=== PATIENT | male | born 1995 | race Caucasian/White ===

== ENCOUNTER 2017-01-21 02:47 | Inpatient (IN) | payer OTHER ==
[2017-01-21] VITALS (11 sets, daily range): BP systolic 93–125; BP diastolic 55–80
[~2017-01-21] VITALS: Ht 180.3 cm; Wt 65.4 kg
[~2017-01-21 02:47] MED LIST: CENTRUM COMPLE1 EACH PO; HUMULIN R100 UNITS/ SC; INSULIN REGULAR SQ; KEFLEX500 MG PO; LANTUS 10100 UNITS/ SC; LANTUS 3 M100 UNITS1 SC; LANTUS100 UNIT/1 SQ; MOTRIN IB200 MG PO; NOVOLIN,HU100 UNITS1 SC; NOVOLOG 10100 UNITS/ SC
[2017-01-21 03:16] LABS: HEMATOCRIT 42.5 % (38.0-50.0); MCH 30.8 PG (29.0-34.0); MCHC 35.1 G/DL (30.0-36.0); MCV 87.8 FL (86-99); MEAN PLAT.VOLUME 10.5 uM^3 (9.0-12.4); PLATELET COUNT 276 K/uL (156-360); RBC DIS.WIDTH-CV 11.4 % (11.8-14.6); RED BLOOD COUNT 4.84 M/uL (4.00-5.50); WHITE BLOOD COUNT 6.5 K/uL (4.1-10.2)
[2017-01-21 03:18] LABS: CARBON DIOXIDE (BICARBONATE) 23.6 MEQ/L (20-31)
[2017-01-21 03:26] LABS: CHLORIDE 92 mEq/L (99-109); POTASSIUM 3.3 mEq/L (3.7-5.4); SODIUM 134 mEq/L (136-147)
[2017-01-21 03:30] LABS: ANION GAP 23 MEQ/L (2-14)
[2017-01-21 03:31] LABS: SERUM ETHYL ALCOHOL 141 mg/dL
[2017-01-21 03:32] LABS: ALKALINE PHOSPHATASE 96 IU/L (3-129); GFR ESTIMATE (CALCULATED) > 59 mL/min/
[2017-01-21 03:33] LABS: UREA NITROGEN (BUN) 12 mg/dL (9-23)
[2017-01-21 03:47] LABS: GLUCOSE 657 mg/dL (70-99)
[2017-01-21 04:02] LABS: ADD MIUA? NO; BILIRUBIN NEGATIVE; BLOOD NEGATIVE; COLOR COLORLESS ((YELLOW)); GLUCOSE (STRIP) >=500; KETONES 5; LEUKOCYTES NEGATIVE; NITRITE NEGATIVE; PROTEIN (STRIP) NEGATIVE; SPECIFIC GRAVITY 1.021 (1.000-1.030); UCUL ADDED? NO; UROBILINOGEN 0.2 MG/DL (0.2-1.0)
[2017-01-21 04:07] LABS: AMPHETAMINE NEGATIVE (500 ng/mL); BARBITURATES NEGATIVE (200 ng/mL); BENZODIAZEPINES NEGATIVE (150 ng/mL); COCAINE NEGATIVE (150 ng/mL); INTERNAL CONTROLS VALID? YES; METHADONE NEGATIVE (200 ng/mL); METHAMPHETAMINE NEGATIVE (500 ng/mL); OPIATES (MORPHINE) NEGATIVE (100 ng/mL); OXYCODONE NEGATIVE (100 ng/mL); PHENCYCLIDINE NEGATIVE (25 ng/mL); PROPOXYPHENE NEGATIVE (300 ng/mL); THC CANNABINOIDS NEGATIVE (50 ng/mL); TRICYCLIC ANTIDEPRESSANTS NEGATIVE (300 ng/mL)
[2017-01-21 06:02] LABS: POINT-OF-CARE METER ID UU14100415
[2017-01-21] MEDS ORDERED: LANTUS 10100 UNITS/ SQ (06:14)
[2017-01-21] MEDS ORDERED: MELOXICAM15 MG PO (06:17)
[2017-01-21 07:32] LABS: METH RESISTANT S AUREUS PCR NEGATIVE (NEGATIVE)
[2017-01-21 07:37] LABS: PROBE CHECK PASS; SPECIMEN PROCESSING CONTROL PASS
[2017-01-21 07:47] LABS: Estimated Average Glucose 303 mg/dL (70-123); HEMOGLOBIN A1c (GLYCOHEMOGLOB) 12.2 % HGB (Below 5.7)
[2017-01-21 08:34] LABS: ANION GAP 10 MEQ/L (2-14); CHLORIDE 104 MEQ/L (99-109); POTASSIUM 3.7 MEQ/L (3.7-5.4); SAMPLE HEMOLYSIS CHECK 0; SAMPLE ICTERIC CHECK 0; SAMPLE LIPEMIA CHECK 0; UREA NITROGEN (BUN) 9 mg/dL (9-23)
[2017-01-21 08:36] LABS: GFR ESTIMATE (CALCULATED) > 59 mL/min/; GLUCOSE 235 mg/dL (70-99); SODIUM 141 MEQ/L (136-147)
[2017-01-21 09:01] LABS: POINT-OF-CARE METER ID UU14162636
[2017-01-21 12:22] LABS: ANION GAP 6 MEQ/L (2-14); CHLORIDE 106 MEQ/L (99-109); GFR ESTIMATE (CALCULATED) > 59 mL/min/; POTASSIUM 3.3 MEQ/L (3.7-5.4); SAMPLE HEMOLYSIS CHECK 0; SAMPLE ICTERIC CHECK 0; SAMPLE LIPEMIA CHECK 0; SODIUM 142 MEQ/L (136-147); UREA NITROGEN (BUN) 8 mg/dL (9-23)
[2017-01-21 12:23] LABS: GLUCOSE 119 mg/dL (70-99)
[2017-01-21 17:10] LABS: ANION GAP 7 MEQ/L (2-14); CHLORIDE 106 MEQ/L (99-109); POTASSIUM 3.7 MEQ/L (3.7-5.4); SAMPLE HEMOLYSIS CHECK 0; SAMPLE ICTERIC CHECK 0; SAMPLE LIPEMIA CHECK 0; SODIUM 139 MEQ/L (136-147)
[2017-01-21 17:16] LABS: GFR ESTIMATE (CALCULATED) > 59 mL/min/; GLUCOSE 175 mg/dL (70-99); UREA NITROGEN (BUN) 8 mg/dL (9-23)
[2017-01-21] MEDS ORDERED: ADVIL,NUPRIN,M200 MG PO (17:45)
[2017-01-23 10:58] LABS: POINT-OF-CARE METER ID UU14100415
[2017-01-23 10:58] LABS: POINT-OF-CARE METER ID UU14100415
== END 2017-01-21 19:23 | disposition left against medical advice (07) | DRG 639 ==
LOC: EME → EDBD 02:47 → EME 02:47 → EDOF 05:01 → 4WEST 06:12
PROVIDERS: Emergency Medicine; Obstetrics & Gynecology
DX: E13.10 Other specified diabetes mellitus with ketoacidosis without coma (principal); F10.129 Alcohol abuse with intoxication, unspecified; Y90.6 Blood alcohol level of 120-199 mg/100 ml; G43.909 Migraine, unspecified, not intractable, without status migrainosus; F32.9 Major depressive disorder, single episode, unspecified; Z79.4 Long term (current) use of insulin
CPT/HCPCS: 80048 91; 80053; 81003; 82010; 82803; 82948; 83036; 84100; 85027; 87641; 99281; 99285; G0480; J1815; J2405; J7030; J7050

== ENCOUNTER 2017-10-18 23:59 | Emergency (ER) | payer OTHER ==
[~2017-10-18] VITALS: Ht 180.3 cm; Wt 63.3 kg
[~2017-10-18 23:59] MED LIST changes: +ADVIL,NUPRIN,M200 MG PO; +LANTUS 10100 UNITS/ SQ; +MELOXICAM15 MG PO
[2017-10-19 00:10] VITALS: BP 134/79
== END 2017-10-19 02:20 | disposition left against medical advice (07) ==
LOC: EME 23:59
DX: S99.929A Unspecified injury of unspecified foot, initial encounter (principal); Z53.21 Procedure and treatment not carried out due to patient leaving prior to being seen by health care provider

== ENCOUNTER → 2018-03-21 | Emergency (ER) | payer OTHER ==
[~2018-03-21] VITALS: Ht 180.3 cm; Wt 64.9 kg
[~2018-03-21] MED LIST changes: +MOTRIN600 MG PO
[2018-03-21 00:03] VITALS: BP 128/84
== END | disposition home or self-care (01) ==
LOC: EME 00:01
PROC: 0H9RXZZ Drainage of Toe Nail, External Approach (ICD-10-PCS; principal; 2018-03-21)
DX: L60.0 Ingrowing nail (principal); L03.032 Cellulitis of left toe
CPT/HCPCS: 73630; 87070; 87075; 87077; 87147; 87186; 87205